=== PATIENT | male | born 1985 | race Two or more races ===

== ENCOUNTER 2025-01-15 14:00 | Emergency (ER) | payer SELFPAY ==
[~2025-01-15] VITALS: Ht 177.8 cm; Wt 127.0 kg
[2025-01-15 14:02] VITALS: TEMP 98
[2025-01-15] MEDS ORDERED: LIDOCAINE 1%-EPI 1:100,000 20 ML VIAL ONE (14:13)
[2025-01-15] MEDS ORDERED: HYDR-3972 PO (15:07)
[2025-01-15] MEDS ORDERED: IBUP-1490 PO (15:07)
[2025-01-15] MEDS ORDERED: TDAP [DIPH/PERTUSSIS/TET] 0.5 ML VIAL IM ONE (15:16)
[2025-01-15] MEDS: TDAP [DIPH/PERTUSSIS/TET] 0.5 ML VIAL IM ONE (15:18)
[2025-01-15] MEDS: BACI/NEOM/POLY B OINT PKT 1 UDPKT PACKET TP ONE (15:19)
[2025-01-15 16:05] VITALS: BP 120/85; O2SAT 99
== END 2025-01-15 16:03 | disposition home or self-care (01) ==
LOC: ER 14:03
DX: S51.811A Laceration without foreign body of right forearm, initial encounter (principal); W26.0XXA Contact with knife, initial encounter; Y93.89 Activity, other specified; Y92.89 Other specified places as the place of occurrence of the external cause; Y99.8 Other external cause status
CPT/HCPCS: 12004; 90471; 90715; 99283; J3490